=== PATIENT | male | born 1980 | race Caucasian/White ===

== ENCOUNTER 2019-03-12 13:13 | Emergency (ER) | payer MEDICARE, OTHER ==
[~2019-03-12] VITALS: Ht 177.8 cm; Wt 154.6 kg
[~2019-03-12 13:13] MED LIST: CHOL100030 PO; FLUP10 PO; LISI-662 PO; LURA40 PO; METF-446 PO; METF1000 PO; NIAC500T7 PO; OLAN15TA2 PO; OMEP10SU2 PO; SITA100 PO; TOPI50TA PO
[2019-03-12 13:28] LABS: GLUCOSE,POINT OF CARE 228 MG/DL (70-110)
[2019-03-12 13:56] LABS: BASOPHILS % (AUTO) 0.3 % (0.0-2.0); EOSINOPHILS % (AUTO) 0.1 % (1.0-6.0); HEMATOCRIT 42.7 % (41-53); HEMOGLOBIN 13.7 g/dL (13.5-17.5); LYMPHOCYTES # (AUTO) 0.8 K/uL (1.0-4.8); LYMPHOCYTES % (AUTO) 6.2 % (22.0-44.0); MEAN CORPUSCULAR HEMOGLOBIN 25.9 pg (26.0-34.0); MEAN CORPUSCULAR HGB CONC 32.1 G/dL (31.0-37.0); MEAN CORPUSCULAR VOLUME 80 fL (80-100); MONOCYTES # (AUTO) 0.6 K/uL (0.1-1.0); MONOCYTES % (AUTO) 4.4 % (2.0-9.0); NEUTROPHILS # (AUTO) 12.1 K/uL (1.8-7.7); PLATELET COUNT (AUTO) 237 K/uL (150-450); RED BLOOD CELL COUNT(AUTO) 5.31 MIL/uL (4.50-5.90); RED CELL DISTRIBUTION WIDTH 14.9 % (11.5-14.5)
[2019-03-12 14:25] LABS: CALCIUM, TOTAL 9.4 mg/dL (8.8-10.5); CREATININE 1.65 mg/dL (0.60-1.30)
[2019-03-12 14:31] LABS: ALBUMIN 3.9 g/dL (3.4-5.0); BILIRUBIN,TOTAL 0.5 mg/dL (0.1-1.0); TOTAL PROTEIN, SERUM 7.7 g/dL (6.4-8.2)
[2019-03-12] MEDS ORDERED: OMEP20 PO (15:06)
[2019-03-12] MEDS ORDERED: CHOL100018 PO (15:06)
[2019-03-12] MEDS ORDERED: SODIUM CHLORIDE 0.9% 1,000 ML IV ONE (15:15)
[2019-03-12] MEDS ORDERED: ONDANSETRON HCL 4 MG/2 ML VIAL IVP ONE (15:15)
[2019-03-12 15:29] LABS: APPEARANCE,URINE CLEAR (CLEAR); BILIRUBIN,URINE NEGATIVE (NEGATIVE); GLUCOSE, URINE (UA) 250 mg/dL (NEGATIVE); KETONES,URINE NEGATIVE (NEGATIVE); LEUKOCYTE ESTERASE ,URINE NEGATIVE (NEGATIVE); NITRATE,URINE NEGATIVE (NEGATIVE); PH,URINE 6.5 (5.0-8.0); PROTEIN,URINE SEE CONFIRM (NEGATIVE)
[2019-03-12 15:38] LABS: BACTERIA,URINE None Seen /HPF (None Seen); OCCULT BLOOD,URINE MODERATE (NEGATIVE); SULFOSALICYLIC ACID,URINE 3+ (Negative); WBC,URINE None Seen /HPF (0-5)
[2019-03-12] MEDS ORDERED: ARIP5TAB8 PO (16:34)
[2019-03-12] MEDS ORDERED: PROPRANOLOL HCL 10 MG TABLET PO ONE (16:45)
[2019-03-12] MEDS ORDERED: METOCLOPRAMIDE HCL 5 MG/ML 2 ML VIAL IVP ONE (17:30)
[2019-03-12] MEDS ORDERED: KETOROLAC TROMETHAMINE 30 MG/ML VIAL IVP ONE (18:15)
[2019-03-12 18:18] VITALS: BP 176/88
[2019-03-12] MEDS ORDERED: TAMSULOSIN HCL 0.4 MG CAPSULE PO ONE (18:45)
== END 2019-03-12 19:07 | disposition home or self-care (01) ==
LOC: EMS 14:11
DX: N13.2 Hydronephrosis with renal and ureteral calculous obstruction (principal); E11.22 Type 2 diabetes mellitus with diabetic chronic kidney disease; N18.9 Chronic kidney disease, unspecified; E11.65 Type 2 diabetes mellitus with hyperglycemia; R31.29 Other microscopic hematuria; E66.9 Obesity, unspecified; R11.2 Nausea with vomiting, unspecified; F20.9 Schizophrenia, unspecified; Z68.42 Body mass index [BMI] 45.0-49.9, adult; Z79.899 Other long term (current) drug therapy; Z79.84 Long term (current) use of oral hypoglycemic drugs
CPT/HCPCS: 36415; 74176; 80053; 81001; 82962; 83690; 85025; 96374; 96375; 99284; J1885; J2405; J2765; J7030

== ENCOUNTER 2019-11-03 07:31 | Emergency (ER) | payer MEDICARE, OTHER ==
[~2019-11-03] VITALS: Ht 185.4 cm; Wt 161.4 kg
[~2019-11-03 07:31] MED LIST changes: +ARIP5TAB8 PO; -CHOL100030 PO; -FLUP10 PO; -LISI-662 PO; -LURA40 PO; -METF-446 PO; -METF1000 PO; -NIAC500T7 PO; -OLAN15TA2 PO; -OMEP10SU2 PO; -SITA100 PO; -TOPI50TA PO
[2019-11-03] MEDS ORDERED: SODIUM CHLORIDE 0.9% 1,000 ML IV ONE ×2 (08:15→09:30)
[2019-11-03 08:24] LABS: GLUCOSE,POINT OF CARE 215 MG/DL (70-110)
[2019-11-03 08:55] LABS: BASOPHILS % (AUTO) 0.8 % (0.0-2.0); EOSINOPHILS % (AUTO) 3.2 % (1.0-6.0); HEMATOCRIT 42.6 % (41-53); HEMOGLOBIN 13.9 g/dL (13.5-17.5); LYMPHOCYTES # (AUTO) 1.1 K/uL (1.0-4.8); LYMPHOCYTES % (AUTO) 10.8 % (22.0-44.0); MEAN CORPUSCULAR HEMOGLOBIN 26.7 pg (26.0-34.0); MEAN CORPUSCULAR HGB CONC 32.6 G/dL (31.0-37.0); MEAN CORPUSCULAR VOLUME 82 fL (80-100); MONOCYTES # (AUTO) 0.5 K/uL (0.1-1.0); MONOCYTES % (AUTO) 4.9 % (2.0-9.0); NEUTROPHILS # (AUTO) 8.2 K/uL (1.8-7.7); NEUTROPHILS % (AUTO) 80.3 % (40.0-70.0); PLATELET COUNT (AUTO) 254 K/uL (150-450); RED CELL DISTRIBUTION WIDTH 16.3 % (11.5-14.5)
[2019-11-03 09:05] LABS: CALCIUM, TOTAL 9.5 mg/dL (8.8-10.5); CREATININE 1.61 mg/dL (0.60-1.30); POTASSIUM 4.7 mmol/L (3.5-5.1)
[2019-11-03 09:11] LABS: ALBUMIN 4.2 g/dL (3.4-5.0); BILIRUBIN,TOTAL 0.4 mg/dL (0.1-1.0); TOTAL PROTEIN, SERUM 8.1 g/dL (6.4-8.2)
[2019-11-03 09:26] LABS: INR 0.9 (0.9-1.1); PROTHROMBIN TIME 9.5 SEC (9.4-11.6)
[2019-11-03] MEDS ORDERED: SODIUM CHLORIDE 0.9% 100 ML ONE (10:18)
[2019-11-03] MEDS ORDERED: IOVERSOL 350 MG/ML 150 ML VIAL ONE (10:18)
[2019-11-03] MEDS ORDERED: METF-960 PO (11:18)
[2019-11-03] MEDS ORDERED: SITA25 PO (11:18)
[2019-11-03] MEDS ORDERED: MAGN200T5 PO (11:18)
[2019-11-03] MEDS ORDERED: LISI-660 PO (11:18)
[2019-11-03] MEDS ORDERED: FAMO20 PO (11:18)
[2019-11-03] MEDS ORDERED: ASPI-728 PO (11:18)
[2019-11-03 12:01] LABS: APPEARANCE,URINE TURBID (CLEAR); BILIRUBIN,URINE NEGATIVE (NEGATIVE); GLUCOSE, URINE (UA) 250 mg/dL (NEGATIVE); KETONES,URINE NEGATIVE (NEGATIVE); LEUKOCYTE ESTERASE ,URINE NEGATIVE (NEGATIVE); NITRATE,URINE NEGATIVE (NEGATIVE); OCCULT BLOOD,URINE MODERATE (NEGATIVE); PROTEIN,URINE SEE CONFIRM (NEGATIVE); UROBILINOGEN,URINE 0.2 mg/dL (<=1.0)
[2019-11-03 12:02] VITALS: BP 141/97
[2019-11-03 12:13] LABS: SULFOSALICYLIC ACID,URINE 2+ (Negative)
[2019-11-03 12:14] LABS: AMORPHOUS SEDIMENT,UR Many /LPF (None Seen); BACTERIA,URINE None Seen /HPF (None Seen); WBC,URINE None Seen /HPF (0-5)
== END 2019-11-03 12:31 | disposition home or self-care (01) ==
LOC: EMS 07:32
DX: R10.31 Right lower quadrant pain (principal); F32.9 Major depressive disorder, single episode, unspecified; E11.9 Type 2 diabetes mellitus without complications; K21.9 Gastro-esophageal reflux disease without esophagitis; I10 Essential (primary) hypertension; F20.9 Schizophrenia, unspecified
CPT/HCPCS: 36415; 74177; 80053; 81001; 82962; 83690; 85025; 85610; 96360; 96361; 99285; J7030; J7050; Q9967

== ENCOUNTER 2020-04-07 07:01 | Emergency (ER) | payer MEDICARE, OTHER ==
[~2020-04-07 07:01] MED LIST changes: +ASPI-1450 PO; +FAMO20 PO; +LISI-892 PO; +MAGN200T5 PO; +METF-960 PO; +SITA25 PO
== END 2020-04-07 07:17 | disposition left against medical advice (07) ==
LOC: EMS 07:01
DX: E11.65 Type 2 diabetes mellitus with hyperglycemia (principal); Z53.21 Procedure and treatment not carried out due to patient leaving prior to being seen by health care provider

== ENCOUNTER 2023-11-17 05:49 | Emergency (ER) | payer MEDICARE, OTHER ==
[~2023-11-17] VITALS: Ht 182.9 cm; Wt 172.7 kg
[~2023-11-17 05:49] MED LIST changes: +ALLO100T50 PO; +ARIP5TAB37 PO; -ARIP5TAB8 PO; +DOXY-354 PO; -LISI-892 PO; +LISI-893 PO; +METF-1211 PO; -METF-960 PO; +PRED20 PO
[2023-11-17 06:06] VITALS: TEMP 98.5
[2023-11-17 06:36] LABS: BASOPHILS % (AUTO) 0.8 % (0.0-2.0); EOSINOPHILS % (AUTO) 8.7 % (1.0-6.0); HEMOGLOBIN 10.4 g/dL (13.5-17.5); LYMPHOCYTES # (AUTO) 1.6 K/uL (1.0-4.8); LYMPHOCYTES % (AUTO) 18.4 % (22.0-44.0); MEAN CORPUSCULAR HEMOGLOBIN 27.8 pg (26.0-34.0); MEAN CORPUSCULAR HGB CONC 33.4 G/dL (31.0-37.0); MEAN CORPUSCULAR VOLUME 83 fL (80-100); MONOCYTES # (AUTO) 0.7 K/uL (0.1-1.0); NEUTROPHILS # (AUTO) 5.4 K/uL (1.8-7.7); NEUTROPHILS % (AUTO) 64.1 % (40.0-70.0); PLATELET COUNT (AUTO) 238 K/uL (150-450); RED BLOOD CELL COUNT(AUTO) 3.73 MIL/uL (4.50-5.90); RED CELL DISTRIBUTION WIDTH 15.6 % (11.5-14.5); WHITE BLOOD COUNT (AUTO) 8.5 K/uL (4.5-11.0)
[2023-11-17 06:42] LABS: HEMOGLOBIN A1C 7.2 % (3.8-5.6)
[2023-11-17 06:48] LABS: CALCIUM, TOTAL 7.8 mg/dL (8.8-10.5); CREATININE 1.83 mg/dL (0.60-1.30); POTASSIUM 4.3 mmol/L (3.5-5.1)
[2023-11-17] MEDS: AmLODIPine BESYLATE 5 MG TABLET PO ONE (07:17)
[2023-11-17] MEDS: SODIUM CHLORIDE 0.9% 500 ML IV ONE (07:18)
[2023-11-17] MEDS: INSULIN REGULAR, HUMAN 100 UNITS/ML SQ ONE (07:55)
[2023-11-17 08:16] LABS: GLUCOMETER DEV NAME(LOC) ERT.6; GLUCOSE,POINT OF CARE 235 MG/DL (70-110)
[2023-11-17 09:45] VITALS: BP 144/89; PULSE 89; RESP 18; O2SAT 98
[2023-11-17 11:41] LABS: GLUCOMETER DEV NAME(LOC) ERT.6; GLUCOSE,POINT OF CARE 185 MG/DL (70-110)
== END 2023-11-17 09:56 | disposition home or self-care (01) ==
LOC: EMS 05:49
DX: E11.65 Type 2 diabetes mellitus with hyperglycemia (principal); I10 Essential (primary) hypertension; F32.A Depression, unspecified; F20.9 Schizophrenia, unspecified; K21.9 Gastro-esophageal reflux disease without esophagitis
CPT/HCPCS: 99283; 80048; 82962; 83036; 85025; 36415; J1815; J7040

== ENCOUNTER 2025-02-03 20:22 | Emergency (ER) | payer MEDICARE, OTHER ==
[~2025-02-03] VITALS: Ht 182.9 cm; Wt 171.8 kg
[2025-02-03 21:40] VITALS: BP 155/94; PULSE 92; RESP 18; TEMP 97.9; O2SAT 98
== END 2025-02-04 00:46 | disposition home or self-care (01) ==
LOC: EMS 20:22
DX: S90.935A Unspecified superficial injury of left lesser toe(s), initial encounter (principal); E11.9 Type 2 diabetes mellitus without complications; F20.9 Schizophrenia, unspecified; F32.A Depression, unspecified; I10 Essential (primary) hypertension; K21.9 Gastro-esophageal reflux disease without esophagitis; Z79.899 Other long term (current) drug therapy; Z79.52 Long term (current) use of systemic steroids; Z79.82 Long term (current) use of aspirin
CPT/HCPCS: 82962; 99282